=== PATIENT | female | born 1990 | race Caucasian/White ===

== ENCOUNTER → 2017-09-18 | Outpatient (CLI) | payer MEDICARE, MEDICAID | LOC: COL.VAS 12:24 | DX: Z01.810 Encounter for preprocedural cardiovascular examination (principal) ==

== ENCOUNTER 2017-11-12 08:57 | Day surgery (SDC) | payer MEDICARE, MEDICAID ==
[~2017-11-12] VITALS: Ht 144.8 cm; Wt 74.0 kg
[2017-11-12] MEDS ORDERED: PRILOSEC 20MG20 MG PO ×2 (09:18→09:19)
[2017-11-12] MEDS ORDERED: LEVOXYL0.075 MG PO (09:19)
[2017-11-12] MEDS ORDERED: [UNRECOGNIZED DRUG - OTHER] TP (09:20)
[2017-11-12] MEDS ORDERED: LOTRIMIN1% TP (09:22)
[2017-11-12] MEDS ORDERED: CALCIUM 600MG+D1 TAB PO (09:22)
[2017-11-12] MEDS ORDERED: MINOCYCLIN100 MG/CAP PO (09:22)
[2017-11-12 10:03] VITALS: BP 143/93; PULSE 82; TEMP 97.3
[2017-11-12 11:15] VITALS: BP 158/124; PULSE 97; TEMP 97.8
[2017-11-12 11:30] VITALS: BP 144/106; PULSE 93
[2017-11-12 11:45] VITALS: BP 130/86; PULSE 97
[2017-11-12 12:00] VITALS: BP 122/102; PULSE 95
[2017-11-12 12:15] VITALS: BP 132/87; PULSE 92
[2017-11-12] MEDS ORDERED: REGLAN 5MG T5 MG/TAB PO (12:24)
== END 2017-11-12 12:15 | disposition home or self-care (01) ==
LOC: SDCO 08:57
DX: K44.9 Diaphragmatic hernia without obstruction or gangrene (principal); K31.84 Gastroparesis; Q90.9 Down syndrome, unspecified; K21.9 Gastro-esophageal reflux disease without esophagitis; Z88.1 Allergy status to other antibiotic agents
CPT/HCPCS: OP; J2704

== ENCOUNTER 2018-01-23 09:00 | Day surgery (SDC) | payer MEDICARE, MEDICAID ==
[~2018-01-23] VITALS: Ht 149.9 cm; Wt 72.3 kg
[~2018-01-23 09:00] MED LIST: CALCIUM 600MG+D1 TAB PO; LEVOXYL0.075 MG PO; LOTRIMIN1% TP; MINOCYCLIN100 MG/CAP PO; PRILOSEC 20MG20 MG PO; REGLAN 5MG T5 MG/TAB PO; [UNRECOGNIZED DRUG - OTHER] TP
[2018-01-23 09:54] VITALS: BP 142/88; PULSE 88; TEMP 98.5
[2018-01-23] MEDS ORDERED: MINOCIN 50M50 MG/CAP PO (10:24)
[2018-01-23 14:00] VITALS: BP 151/81; PULSE 102; TEMP 97.5
[2018-01-23 14:15] VITALS: BP 151/83; PULSE 103
== END 2018-01-23 16:14 | disposition home or self-care (01) ==
LOC: SDCO 09:00
DX: K08.89 Other specified disorders of teeth and supporting structures (principal); Q90.9 Down syndrome, unspecified; R62.50 Unspecified lack of expected normal physiological development in childhood; E03.9 Hypothyroidism, unspecified; K21.9 Gastro-esophageal reflux disease without esophagitis; Z87.74 Personal history of (corrected) congenital malformations of heart and circulatory system; Z88.1 Allergy status to other antibiotic agents
CPT/HCPCS: J0690; J1100; J2405; J2704; J3010; J7120

== ENCOUNTER → 2019-07-16 | Outpatient (CLI) | payer MEDICARE, MEDICAID ==
[~2019-07-16] MED LIST changes: +MINOCIN 50M50 MG/CAP PO
== END ==
LOC: COL.RAD 11:30
DX: R56.9 Unspecified convulsions (principal)